=== PATIENT | male | born 1945 | race Caucasian/White ===

== ENCOUNTER 2017-10-08 16:51 | Inpatient (IN) | payer MEDICARE, OTHER ==
[2017-10-08 18:42] LABS: URINE BLOOD (Dip) POC 2+ (NEGATIVE); URINE GLUCOSE (Dip) POC Negative (NEGATIVE); URINE KETONES (Dip) POC Negative (NEGATIVE); URINE LEUKOCYTE EST (Dip) POC Negative (NEGATIVE); URINE NITRITE (Dip) POC Negative (NEGATIVE); URINE TOTAL PROTEIN POC Trace (NEGATIVE)
[2017-10-08 18:54] LABS: ADD MAN DIFF? NO
[2017-10-08] MEDS: SOD CHLORIDE 0.9% 1,000 ML IV (18:55)
[2017-10-08] MEDS: ONDANSETRON 4 MG INJ IV (18:55)
[2017-10-08] MEDS: KETOROLAC 15 MG INJ IV (18:55)
[2017-10-08 18:56] LABS: BASOPHILS % 0.4 % (0.0-2.0); EOSINOPHILS # 0.1 10^3/ul (0.0-0.5); EOSINOPHILS % 1.3 % (0.0-7.0); HEMATOCRIT 38.4 % (42.0-52.0); HEMOGLOBIN 13.3 g/dl (14.0-18.0); LYMPHOCYTES # 0.8 10^3/ul (0.8-2.9); LYMPHOCYTES % 10.2 % (15.0-51.0); MEAN CORPUSCULAR HEMOGLOBIN 32.7 pg (29.0-33.0); MEAN CORPUSCULAR HGB CONC 34.6 g/dl (32.0-37.0); MEAN CORPUSCULAR VOLUME 94.3 fl (82.0-101.0); MEAN PLATELET VOLUME 10.7 fl (7.4-10.4); MONOCYTE # 0.7 10^3/ul (0.3-0.9); NEUTROPHIL # 5.9 10^3/ul (1.6-7.5); NEUTROPHILS % 78.8 % (39.0-77.0); PLATELET COUNT 186 10^3/UL (140-415); RED BLOOD COUNT 4.07 10^6/ul (4.70-6.10); RED CELL DISTRIBUTION WIDTH 12.6 % (11.5-14.5)
[2017-10-08 18:56] LABS: WHITE BLOOD COUNT 7.5 10^3/ul (4.8-10.8)
[2017-10-08 19:00] LABS: INR 1.01; PROTIME 13.4 Sec (11.9-14.9)
[2017-10-08 19:02] LABS: ADD UMIC YES; ALANINE AMINOTRANSFERASE 30 IU/L (13-69); ALBUMIN 4.4 g/dl (3.3-4.9); ALBUMIN/GLOBULIN RATIO 1.51; ALKALINE PHOSPHATASE 95 IU/L (42-121); ANION GAP 20 (8-16); ASPARTATE AMINO TRANSFERASE 20 IU/L (15-46); BILIRUBIN,INDIRECT 0.2 mg/dl (0-1.1); BILIRUBIN,TOTAL 0.2 mg/dl (0.2-1.3); BLOOD UREA NITROGEN 24 mg/dl (7-20); CALCIUM 9.4 mg/dl (8.4-10.2); CARBON DIOXIDE 23 mmol/L (21-31); CHLORIDE 106 mmol/L (97-110); CREATININE 2.06 mg/dl (0.61-1.24); GLUCOSE 117 mg/dl (70-220); LIPASE 70 U/L (23-300); POTASSIUM 4.7 mmol/L (3.5-5.1); SODIUM 144 mmol/L (135-144); TOTAL PROTEIN 7.3 g/dl (6.1-8.1); UR ASCORBIC ACID 20 mg/dL (NEGATIVE); UR BILIRUBIN (Dip) NEGATIVE (NEGATIVE); UR BLOOD (Dip) 1+ mg/dL (NEGATIVE); UR CLARITY CLEAR (CLEAR); UR COLOR YELLOW (YELLOW); UR GLUCOSE (Dip) NEGATIVE (NEGATIVE); UR KETONES (Dip) NEGATIVE (NEGATIVE); UR LEUKOCYTE ESTERASE (Dip) NEGATIVE Leu/ul (NEGATIVE); UR NITRITE (Dip) NEGATIVE (NEGATIVE); UR RBC 9 /HPF (0-5); UR SPECIFIC GRAVITY (Dip) 1.017 (1.003-1.030); UR TOTAL PROTEIN (Dip) NEGATIVE (NEGATIVE); UR UROBILINOGEN (Dip) NEGATIVE (NEGATIVE); UR WBC 1 /HPF (0-5)
[2017-10-08] MEDS: HYDROmorphONE 1 MG/ML SYG IV (19:39)
[2017-10-08] MEDS ORDERED: morphine 10 MG INJ (21:56)
[2017-10-08] MEDS: morphine 10 MG INJ IV (21:57)
[2017-10-08] MEDS ORDERED: ACETAMINOPHEN 325 MG TAB PO (23:30)
[2017-10-08] MEDS ORDERED: NACL 0.9% 3 ML SYG IV (23:30)
[2017-10-08] MEDS ORDERED: MAGNESIUM HYDROXIDE 30ML CUP PO (23:30)
[2017-10-08] MEDS ORDERED: ONDANSETRON 4 MG INJ IV (23:30)
[2017-10-08] MEDS ORDERED: RANITIDINE 150 MG TAB PO (23:30)
[2017-10-09] MEDS ORDERED: SALINE 0.65% 45 ML NAS SPRAY NASAL
[2017-10-09] MEDS ORDERED: VITAMIN A & D 5 GM OINT PACKET TOP (00:31)
[2017-10-09] MEDS: DEXTROSE 5%-0.45% NACL 1,000 ML IV ×2 (00:43→13:18)
[2017-10-09] MEDS: morphine 2 MG INJ IV ×4 (05:05→23:37)
[2017-10-09] MEDS: PANTOPRAZOLE 40 MG INJ IV (05:06)
[2017-10-09] MEDS: TICAGRELOR 90 MG TABLET PO ×3 (09:00→20:38)
[2017-10-09] MEDS: ISOSORBIDE MONONITRATE(SR)30 MG TAB PO ×2 (09:00)
[2017-10-09] MEDS: ASPIRIN (EC) 81 MG TAB PO ×2 (09:00→14:47)
[2017-10-09] MEDS: VALSARTAN 160 MG TAB PO (10:24)
[2017-10-09] MEDS ORDERED: HYDROmorphONE 1 MG/ML SYG IV (13:30)
[2017-10-09] MEDS: CEFTRIAXONE 1 GM/50 ML (PMX) 50 ML IVPB (14:47)
[2017-10-09 16:01] LABS: B-TYPE NATRIURETIC PEPTIDE 2530 PG/ML (0-125)
[2017-10-09 16:08] LABS: CK INDEX 4.5
[2017-10-09 16:11] LABS: CK-MB 2.27 ng/ml (0.0-2.4); CREATINE KINASE 50 IU/L (23-200)
[2017-10-09 16:19] LABS: URIC ACID 7.5 mg/dl (3.1-7.9)
[2017-10-09] MEDS: HYDROmorphONE 1 MG/ML SYG IV (18:27)
[2017-10-09] MEDS: NIACIN (ER) 500 MG TAB PO (20:38)
[2017-10-09] MEDS: METOPROLOL (XL) 50 MG TAB PO (20:39)
[2017-10-09] MEDS: TAMSULOSIN (SR) 0.4 MG CAP PO (21:44)
[2017-10-09] MEDS: ATORVASTATIN 10 MG TAB PO (21:44)
[2017-10-10 01:26] LABS: CREATINE KINASE 59 IU/L (23-200)
[2017-10-10 01:40] LABS: CK INDEX 3.7; TROPONIN-I 0.038 ng/ml (0.00-0.12)
[2017-10-10 01:42] LABS: CK-MB 2.16 ng/ml (0.0-2.4)
[2017-10-10] MEDS: DEXTROSE 5%-0.45% NACL 1,000 ML IV ×3 (01:45→17:19)
[2017-10-10] MEDS: HYDROCODONE/APAP (5/325) TAB PO (02:28)
[2017-10-10] MEDS: morphine 2 MG INJ IV ×5 (04:54→22:30)
[2017-10-10] MEDS: PANTOPRAZOLE 40 MG INJ IV (05:38)
[2017-10-10] MEDS ORDERED: MEPERIDINE 25 MG INJ IV (06:30)
[2017-10-10] MEDS ORDERED: OXYCODONE/ACETAMINOPHEN (5/325) TAB PO ×2 (06:30)
[2017-10-10] MEDS ORDERED: EPHEDrine SULFATE 50 MG/5 ML SYG IV (06:30)
[2017-10-10] MEDS ORDERED: DIPHENHYDRAMINE 50 MG INJ IV (06:30)
[2017-10-10] MEDS ORDERED: MIDAZOLAM 1 MG/ML 2 ML INJ IV (06:30)
[2017-10-10] MEDS ORDERED: hydrALAzine 20 MG INJ IV (06:30)
[2017-10-10] MEDS ORDERED: ONDANSETRON 4 MG INJ IV (06:30)
[2017-10-10] MEDS ORDERED: FENTAnyl 50 MCG/ML VIAL IV ×2 (06:30)
[2017-10-10] MEDS ORDERED: ATROPINE 1 MG/10 ML SYRINGE IV (06:30)
[2017-10-10] MEDS ORDERED: HYDROmorphONE (0.2 MG/ML) 10ML SYG IV ×3 (06:30)
[2017-10-10] MEDS ORDERED: LABETALOL HCL 20MG INJ IV (06:30)
[2017-10-10] MEDS ORDERED: morphine (1 MG/ML) 10ML SYRINGE IV ×3 (06:30)
[2017-10-10] MEDS: TICAGRELOR 90 MG TABLET PO ×2 (09:21→21:18)
[2017-10-10] MEDS: ASPIRIN (EC) 81 MG TAB PO (09:21)
[2017-10-10] MEDS: ISOSORBIDE MONONITRATE(SR)30 MG TAB PO (09:22)
[2017-10-10 10:54] LABS: ADD MAN DIFF? NO
[2017-10-10 11:01] LABS: BASOPHILS % 0.3 % (0.0-2.0); EOSINOPHILS # 0.1 10^3/ul (0.0-0.5); HEMATOCRIT 33.6 % (42.0-52.0); HEMOGLOBIN 11.5 g/dl (14.0-18.0); LYMPHOCYTES # 0.8 10^3/ul (0.8-2.9); LYMPHOCYTES % 10.5 % (15.0-51.0); MEAN CORPUSCULAR HEMOGLOBIN 32.5 pg (29.0-33.0); MEAN CORPUSCULAR HGB CONC 34.2 g/dl (32.0-37.0); MEAN CORPUSCULAR VOLUME 94.9 fl (82.0-101.0); MEAN PLATELET VOLUME 10.7 fl (7.4-10.4); MONOCYTE # 0.7 10^3/ul (0.3-0.9); MONOCYTES % 9.1 % (0.0-11.0); NEUTROPHIL # 5.7 10^3/ul (1.6-7.5); NEUTROPHILS % 78.8 % (39.0-77.0); PLATELET COUNT 159 10^3/UL (140-415); RED BLOOD COUNT 3.54 10^6/ul (4.70-6.10); RED CELL DISTRIBUTION WIDTH 12.6 % (11.5-14.5)
[2017-10-10 11:01] LABS: WHITE BLOOD COUNT 7.3 10^3/ul (4.8-10.8)
[2017-10-10 11:22] LABS: CHOLESTEROL 106 mg/dl (100-200)
[2017-10-10 11:22] LABS: CHOL/HDL RATIO 2.5 RATIO; CREATINE KINASE 62 IU/L (23-200); HDL CHOLESTEROL 41 mg/dl (31-75); LDL CHOLESTEROL,CALCULATED 50 mg/dl; TRIGLYCERIDES 75 mg/dl (0-149)
[2017-10-10 11:23] LABS: PHOSPHORUS 3.5 mg/dl (2.5-4.9)
[2017-10-10 11:23] LABS: MAGNESIUM 1.6 mg/dl (1.7-2.5)
[2017-10-10 11:24] LABS: ANION GAP 16 (8-16); BLOOD UREA NITROGEN 22 mg/dl (7-20); CALCIUM 8.6 mg/dl (8.4-10.2); CARBON DIOXIDE 23 mmol/L (21-31); CHLORIDE 103 mmol/L (97-110); GLUCOSE 118 mg/dl (70-220); SODIUM 137 mmol/L (135-144)
[2017-10-10 11:33] LABS: CK INDEX 3.9; TROPONIN-I 0.029 ng/ml (0.00-0.12)
[2017-10-10] MEDS: CEFTRIAXONE 1 GM/50 ML (PMX) 50 ML IVPB (13:21)
[2017-10-10] MEDS: MAGNESIUM SULFATE 2 GM/50 ML 50 ML IVPB (13:45)
[2017-10-10] MEDS: FUROSEMIDE 40 MG INJ IV (13:46)
[2017-10-10] MEDS: TAMSULOSIN (SR) 0.4 MG CAP PO (14:38)
[2017-10-10] MEDS ORDERED: ZOLPIDEM 5 MG TAB PO (20:00)
[2017-10-10] MEDS: NIACIN (ER) 500 MG TAB PO (21:11)
[2017-10-10] MEDS: ATORVASTATIN 10 MG TAB PO (21:11)
[2017-10-10] MEDS: METOPROLOL (XL) 50 MG TAB PO (21:12)
[2017-10-11] MEDS: morphine 2 MG INJ IV ×2 (05:14→21:49)
[2017-10-11] MEDS: PANTOPRAZOLE 40 MG INJ IV (05:17)
[2017-10-11] MEDS: ASPIRIN (EC) 81 MG TAB PO (09:19)
[2017-10-11] MEDS: TICAGRELOR 90 MG TABLET PO ×2 (09:19→21:07)
[2017-10-11] MEDS: ISOSORBIDE MONONITRATE(SR)30 MG TAB PO (09:20)
[2017-10-11] MEDS: FUROSEMIDE 40 MG INJ IV (09:21)
[2017-10-11] MEDS: TAMSULOSIN (SR) 0.4 MG CAP PO (11:13)
[2017-10-11] MEDS: DEXTROSE 5%-0.45% NACL 1,000 ML IV (11:13)
[2017-10-11 11:51] LABS: ADD MAN DIFF? NO
[2017-10-11 12:02] LABS: BASOPHILS % 0.3 % (0.0-2.0); EOSINOPHILS # 0.1 10^3/ul (0.0-0.5); EOSINOPHILS % 2.1 % (0.0-7.0); HEMATOCRIT 33.5 % (42.0-52.0); HEMOGLOBIN 11.5 g/dl (14.0-18.0); LYMPHOCYTES # 0.7 10^3/ul (0.8-2.9); LYMPHOCYTES % 11.4 % (15.0-51.0); MEAN CORPUSCULAR HEMOGLOBIN 32.5 pg (29.0-33.0); MEAN CORPUSCULAR HGB CONC 34.3 g/dl (32.0-37.0); MEAN CORPUSCULAR VOLUME 94.6 fl (82.0-101.0); MEAN PLATELET VOLUME 10.9 fl (7.4-10.4); MONOCYTE # 0.8 10^3/ul (0.3-0.9); NEUTROPHIL # 4.2 10^3/ul (1.6-7.5); PLATELET COUNT 171 10^3/UL (140-415); RED BLOOD COUNT 3.54 10^6/ul (4.70-6.10); RED CELL DISTRIBUTION WIDTH 12.9 % (11.5-14.5)
[2017-10-11 12:02] LABS: WHITE BLOOD COUNT 5.8 10^3/ul (4.8-10.8)
[2017-10-11 12:13] LABS: PHOSPHORUS 3.8 mg/dl (2.5-4.9)
[2017-10-11 12:13] LABS: ANION GAP 16 (8-16); BLOOD UREA NITROGEN 30 mg/dl (7-20); CALCIUM 8.8 mg/dl (8.4-10.2); CARBON DIOXIDE 24 mmol/L (21-31); CHLORIDE 102 mmol/L (97-110); CREATININE 2.62 mg/dl (0.61-1.24); GLUCOSE 115 mg/dl (70-220); MAGNESIUM 2.2 mg/dl (1.7-2.5); POTASSIUM 5.4 mmol/L (3.5-5.1); SODIUM 137 mmol/L (135-144)
[2017-10-11] MEDS: BISACODYL (EC) 5 MG TAB PO (13:39)
[2017-10-11] MEDS: CEFTRIAXONE 1 GM/50 ML (PMX) 50 ML IVPB (13:39)
[2017-10-11] MEDS: NA POLYST SULFON 15 GM/60 ML BTL PO (16:38)
[2017-10-11] MEDS: OXYCODONE/ACETAMINOPHEN (10/325) TAB PO ×2 (16:46→20:59)
[2017-10-11] MEDS: METOPROLOL (XL) 50 MG TAB PO (20:58)
[2017-10-11] MEDS: NIACIN (ER) 500 MG TAB PO (20:58)
[2017-10-11] MEDS: ATORVASTATIN 10 MG TAB PO (20:59)
[2017-10-12] MEDS: PANTOPRAZOLE 40 MG INJ IV (06:17)
[2017-10-12] MEDS ORDERED: LIDOCAINE 2% (SDV) 5 ML INJ (07:00)
[2017-10-12] MEDS ORDERED: EPHEDrine SULFATE 50 MG/5 ML SYG (07:00)
[2017-10-12] MEDS ORDERED: CEFAZOLIN 1 GM INJ (07:00)
[2017-10-12] MEDS: morphine 2 MG INJ IV (08:01)
[2017-10-12 08:45] LABS: ADD MAN DIFF? NO
[2017-10-12 08:55] LABS: BASOPHILS % 0.5 % (0.0-2.0); EOSINOPHILS # 0.2 10^3/ul (0.0-0.5); EOSINOPHILS % 3.1 % (0.0-7.0); HEMATOCRIT 35.8 % (42.0-52.0); HEMOGLOBIN 12.3 g/dl (14.0-18.0); LYMPHOCYTES # 0.9 10^3/ul (0.8-2.9); LYMPHOCYTES % 16.4 % (15.0-51.0); MEAN CORPUSCULAR HEMOGLOBIN 32.8 pg (29.0-33.0); MEAN CORPUSCULAR HGB CONC 34.4 g/dl (32.0-37.0); MEAN CORPUSCULAR VOLUME 95.5 fl (82.0-101.0); MEAN PLATELET VOLUME 10.4 fl (7.4-10.4); MONOCYTE # 0.7 10^3/ul (0.3-0.9); MONOCYTES % 11.9 % (0.0-11.0); NEUTROPHIL # 3.9 10^3/ul (1.6-7.5); NEUTROPHILS % 67.8 % (39.0-77.0); PLATELET COUNT 182 10^3/UL (140-415); RED BLOOD COUNT 3.75 10^6/ul (4.70-6.10); RED CELL DISTRIBUTION WIDTH 12.7 % (11.5-14.5)
[2017-10-12 08:55] LABS: WHITE BLOOD COUNT 5.7 10^3/ul (4.8-10.8)
[2017-10-12] MEDS: FUROSEMIDE 40 MG INJ IV (09:00)
[2017-10-12] MEDS: ISOSORBIDE MONONITRATE(SR)30 MG TAB PO ×2 (09:00→10:41)
[2017-10-12 09:07] LABS: MAGNESIUM 2.1 mg/dl (1.7-2.5)
[2017-10-12 09:11] LABS: ANION GAP 18 (8-16); BLOOD UREA NITROGEN 34 mg/dl (7-20); CALCIUM 8.9 mg/dl (8.4-10.2); CARBON DIOXIDE 26 mmol/L (21-31); CHLORIDE 101 mmol/L (97-110); CREATININE 2.42 mg/dl (0.61-1.24); GLUCOSE 113 mg/dl (70-220); POTASSIUM 4.1 mmol/L (3.5-5.1); SODIUM 141 mmol/L (135-144)
[2017-10-12] MEDS: HYDROmorphONE 1 MG/ML SYG IV (10:41)
[2017-10-12] MEDS: ASPIRIN (EC) 81 MG TAB PO (10:42)
[2017-10-12] MEDS: TICAGRELOR 90 MG TABLET PO ×2 (10:46→21:00)
[2017-10-12] MEDS: TAMSULOSIN (SR) 0.4 MG CAP PO (11:30)
[2017-10-12] MEDS: CEFTRIAXONE 1 GM/50 ML (PMX) 50 ML IVPB (13:30)
[2017-10-12] MEDS ORDERED: HYDROmorphONE 2 MG TAB PO (15:00)
[2017-10-12] MEDS: ALPRAZOLAM 0.5 MG TAB PO ×2 (15:00→22:10)
[2017-10-12] MEDS: LORAZEPAM 2 MG INJ IV (15:30)
[2017-10-12] MEDS: DEXTROSE 5%-0.45% NACL 1,000 ML IV (17:34)
[2017-10-12] MEDS: HYDROmorphONE 2 MG/ML SYG IV ×2 (17:38→22:10)
[2017-10-12] MEDS ORDERED: ETOMIDATE 20 MG INJ (18:54)
[2017-10-12] MEDS ORDERED: METOCLOPRAMIDE 10 MG INJ (18:56)
[2017-10-12] MEDS ORDERED: ONDANSETRON 4 MG INJ (18:56)
[2017-10-12] MEDS ORDERED: MIDAZOLAM 1 MG/ML 2 ML INJ (18:56)
[2017-10-12] MEDS ORDERED: FENTAnyl 50 MCG/ML VIAL ×3 (18:56→20:08)
[2017-10-12] MEDS ORDERED: FUROSEMIDE 20 MG INJ (19:27)
[2017-10-12] MEDS ORDERED: PROPOFOL 20 ML (19:40)
[2017-10-12] MEDS ORDERED: METOPROLOL 5 MG INJ (19:40)
[2017-10-12] MEDS ORDERED: LABETALOL HCL 20MG INJ (20:12)
[2017-10-12] MEDS: LABETALOL HCL 20MG INJ IV ×3 (20:22→20:53)
[2017-10-12] MEDS: FENTAnyl 50 MCG/ML VIAL IV ×2 (20:26→20:46)
[2017-10-12] MEDS ORDERED: HYDROmorphONE (0.2 MG/ML) 10ML SYG IV ×3 (20:30)
[2017-10-12] MEDS ORDERED: ONDANSETRON 4 MG INJ IV (20:30)
[2017-10-12] MEDS ORDERED: ALBUTEROL 0.083% (NEB) 2.5 MG/3 ML AMP HHN (20:30)
[2017-10-12] MEDS ORDERED: DIPHENHYDRAMINE 50 MG INJ IV (20:30)
[2017-10-12] MEDS: hydrALAzine 20 MG INJ IV ×2 (20:42→21:01)
[2017-10-12] MEDS: ATORVASTATIN 10 MG TAB PO (21:00)
[2017-10-12] MEDS: NIACIN (ER) 500 MG TAB PO (21:00)
[2017-10-12] MEDS: METOPROLOL (XL) 50 MG TAB PO (22:09)
[2017-10-13 05:23] LABS: ADD MAN DIFF? NO
[2017-10-13 05:30] LABS: WHITE BLOOD COUNT 6.6 10^3/ul (4.8-10.8)
[2017-10-13 05:30] LABS: BASOPHILS % 0.3 % (0.0-2.0); EOSINOPHILS # 0.1 10^3/ul (0.0-0.5); EOSINOPHILS % 1.5 % (0.0-7.0); HEMATOCRIT 36.7 % (42.0-52.0); HEMOGLOBIN 12.3 g/dl (14.0-18.0); LYMPHOCYTES # 0.8 10^3/ul (0.8-2.9); LYMPHOCYTES % 12.4 % (15.0-51.0); MEAN CORPUSCULAR HEMOGLOBIN 32.4 pg (29.0-33.0); MEAN CORPUSCULAR HGB CONC 33.5 g/dl (32.0-37.0); MEAN CORPUSCULAR VOLUME 96.6 fl (82.0-101.0); MEAN PLATELET VOLUME 10.4 fl (7.4-10.4); MONOCYTE # 0.7 10^3/ul (0.3-0.9); MONOCYTES % 10.6 % (0.0-11.0); PLATELET COUNT 224 10^3/UL (140-415); RED CELL DISTRIBUTION WIDTH 12.9 % (11.5-14.5)
[2017-10-13] MEDS: PANTOPRAZOLE 40 MG INJ IV (06:05)
[2017-10-13 06:19] LABS: ANION GAP 19 (8-16); BLOOD UREA NITROGEN 29 mg/dl (7-20); CALCIUM 9.4 mg/dl (8.4-10.2); CARBON DIOXIDE 28 mmol/L (21-31); CHLORIDE 102 mmol/L (97-110); CREATININE 1.89 mg/dl (0.61-1.24); GLUCOSE 108 mg/dl (70-220); POTASSIUM 4.4 mmol/L (3.5-5.1); SODIUM 145 mmol/L (135-144)
[2017-10-13] MEDS: ASPIRIN (EC) 81 MG TAB PO (08:56)
[2017-10-13] MEDS: ALPRAZOLAM 0.5 MG TAB PO ×2 (08:57→21:31)
[2017-10-13] MEDS: FUROSEMIDE 40 MG INJ IV (08:58)
[2017-10-13] MEDS: TICAGRELOR 90 MG TABLET PO ×2 (08:59→21:32)
[2017-10-13] MEDS: TAMSULOSIN (SR) 0.4 MG CAP PO (13:15)
[2017-10-13] MEDS: CEFTRIAXONE 1 GM/50 ML (PMX) 50 ML IVPB (13:16)
[2017-10-13] MEDS ORDERED: HYDROmorphONE 1 MG/ML SYG IV (16:00)
[2017-10-13] MEDS: DEXTROSE 5%-0.45% NACL 1,000 ML IV (18:10)
[2017-10-13] MEDS ORDERED: HYDROmorphONE 2 MG/ML SYG IV (18:30)
[2017-10-13] MEDS: BISACODYL (EC) 5 MG TAB PO (19:03)
[2017-10-13] MEDS: ATORVASTATIN 10 MG TAB PO (21:31)
[2017-10-13] MEDS: NIACIN (ER) 500 MG TAB PO (21:31)
[2017-10-13] MEDS: METOPROLOL (XL) 50 MG TAB PO (21:33)
[2017-10-14] MEDS: PANTOPRAZOLE 40 MG INJ IV (06:13)
[2017-10-14] MEDS: FUROSEMIDE 40 MG INJ IV (08:57)
[2017-10-14] MEDS: ALPRAZOLAM 0.5 MG TAB PO ×2 (08:58→22:00)
[2017-10-14] MEDS: ASPIRIN (EC) 81 MG TAB PO (08:58)
[2017-10-14] MEDS: ISOSORBIDE MONONITRATE(SR)30 MG TAB PO (08:58)
[2017-10-14] MEDS: TICAGRELOR 90 MG TABLET PO ×2 (09:17→22:04)
[2017-10-14] MEDS: TAMSULOSIN (SR) 0.4 MG CAP PO (11:45)
[2017-10-14] MEDS: CEFTRIAXONE 1 GM/50 ML (PMX) 50 ML IVPB (13:47)
[2017-10-14 16:35] LABS: ANION GAP 17 (8-16); BLOOD UREA NITROGEN 30 mg/dl (7-20); CALCIUM 8.6 mg/dl (8.4-10.2); CARBON DIOXIDE 26 mmol/L (21-31); CHLORIDE 101 mmol/L (97-110); CREATININE 1.63 mg/dl (0.61-1.24); GLUCOSE 160 mg/dl (70-220); POTASSIUM 3.9 mmol/L (3.5-5.1); SODIUM 140 mmol/L (135-144)
[2017-10-14] MEDS: DEXTROSE 5%-0.45% NACL 1,000 ML IV (17:19)
[2017-10-14] MEDS: ACETAMINOPHEN 500 MG TAB PO (21:10)
[2017-10-14] MEDS: ATORVASTATIN 10 MG TAB PO (21:10)
[2017-10-14] MEDS: NIACIN (ER) 500 MG TAB PO (21:11)
[2017-10-14] MEDS: METOPROLOL (XL) 50 MG TAB PO (21:12)
[2017-10-15] MEDS: PANTOPRAZOLE 40 MG INJ IV (06:00)
[2017-10-15] MEDS: FUROSEMIDE 40 MG INJ IV (08:49)
[2017-10-15] MEDS: OXYCODONE/ACETAMINOPHEN (10/325) TAB PO (08:49)
[2017-10-15] MEDS: ASPIRIN (EC) 81 MG TAB PO (08:50)
[2017-10-15] MEDS: ISOSORBIDE MONONITRATE(SR)30 MG TAB PO (08:50)
[2017-10-15] MEDS: ALPRAZOLAM 0.5 MG TAB PO ×2 (08:50→20:08)
[2017-10-15] MEDS: TICAGRELOR 90 MG TABLET PO ×2 (09:06→20:10)
[2017-10-15 11:45] LABS: ADD MAN DIFF? NO
[2017-10-15] MEDS: TAMSULOSIN (SR) 0.4 MG CAP PO (11:50)
[2017-10-15 12:11] LABS: ANION GAP 19 (8-16); BASOPHILS % 0.4 % (0.0-2.0); BLOOD UREA NITROGEN 28 mg/dl (7-20); CALCIUM 9.1 mg/dl (8.4-10.2); CARBON DIOXIDE 27 mmol/L (21-31); CHLORIDE 99 mmol/L (97-110); CREATININE 1.49 mg/dl (0.61-1.24); EOSINOPHILS # 0.1 10^3/ul (0.0-0.5); EOSINOPHILS % 1.2 % (0.0-7.0); GLUCOSE 159 mg/dl (70-220); HEMATOCRIT 34.6 % (42.0-52.0); HEMOGLOBIN 11.8 g/dl (14.0-18.0); LYMPHOCYTES # 0.7 10^3/ul (0.8-2.9); LYMPHOCYTES % 9.4 % (15.0-51.0); MEAN CORPUSCULAR HEMOGLOBIN 32.6 pg (29.0-33.0); MEAN CORPUSCULAR HGB CONC 34.1 g/dl (32.0-37.0); MEAN CORPUSCULAR VOLUME 95.6 fl (82.0-101.0); MEAN PLATELET VOLUME 10.3 fl (7.4-10.4); MONOCYTE # 0.7 10^3/ul (0.3-0.9); MONOCYTES % 8.6 % (0.0-11.0); NEUTROPHIL # 6.3 10^3/ul (1.6-7.5); NEUTROPHILS % 80.1 % (39.0-77.0); PLATELET COUNT 250 10^3/UL (140-415); POTASSIUM 3.5 mmol/L (3.5-5.1); RED BLOOD COUNT 3.62 10^6/ul (4.70-6.10); RED CELL DISTRIBUTION WIDTH 12.9 % (11.5-14.5); SODIUM 141 mmol/L (135-144)
[2017-10-15 12:11] LABS: WHITE BLOOD COUNT 7.8 10^3/ul (4.8-10.8)
[2017-10-15] MEDS: CEFTRIAXONE 1 GM/50 ML (PMX) 50 ML IVPB (12:52)
[2017-10-15] MEDS: CYCLOBENZAPRINE 10 MG TAB PO ×2 (14:02→20:12)
[2017-10-15 14:27] LABS: URIC ACID 9.6 mg/dl (3.1-7.9)
[2017-10-15 14:36] LABS: CK-MB 1.56 ng/ml (0.0-2.4)
[2017-10-15] MEDS: HYDROmorphONE 1 MG/ML SYG IV (14:43)
[2017-10-15] MEDS: DEXTROSE 5%-0.45% NACL 1,000 ML IV ×2 (15:05→20:14)
[2017-10-15] MEDS: NIACIN (ER) 500 MG TAB PO (20:08)
[2017-10-15] MEDS: HYDROCODONE/APAP (5/325) TAB PO (20:09)
[2017-10-15] MEDS: METOPROLOL (XL) 50 MG TAB PO (20:11)
[2017-10-15] MEDS: ATORVASTATIN 10 MG TAB PO (20:12)
[2017-10-16] MEDS: PANTOPRAZOLE (EC) 40 MG TAB PO (05:40)
[2017-10-16] MEDS: OXYCODONE/ACETAMINOPHEN (10/325) TAB PO (07:39)
[2017-10-16] MEDS: ALPRAZOLAM 0.5 MG TAB PO ×2 (07:40→20:49)
[2017-10-16] MEDS: CYCLOBENZAPRINE 10 MG TAB PO ×3 (09:22→20:49)
[2017-10-16] MEDS: FUROSEMIDE 40 MG INJ IV (09:22)
[2017-10-16] MEDS: ASPIRIN (EC) 81 MG TAB PO (09:23)
[2017-10-16] MEDS: ISOSORBIDE MONONITRATE(SR)30 MG TAB PO (09:23)
[2017-10-16] MEDS: TICAGRELOR 90 MG TABLET PO ×2 (09:47→20:52)
[2017-10-16] MEDS: TAMSULOSIN (SR) 0.4 MG CAP PO (12:00)
[2017-10-16] MEDS: HYDROmorphONE 2 MG TAB PO ×2 (12:02→18:25)
[2017-10-16] MEDS: CEFTRIAXONE 1 GM/50 ML (PMX) 50 ML IVPB (12:56)
[2017-10-16] MEDS: DEXTROSE 5%-0.45% NACL 1,000 ML IV ×2 (15:05→23:25)
[2017-10-16] MEDS: ATORVASTATIN 10 MG TAB PO (20:49)
[2017-10-16] MEDS: NIACIN (ER) 500 MG TAB PO (20:49)
[2017-10-16] MEDS: METOPROLOL (XL) 50 MG TAB PO (20:50)
[2017-10-17] MEDS: HYDROmorphONE 2 MG TAB PO (05:38)
[2017-10-17] MEDS: PANTOPRAZOLE (EC) 40 MG TAB PO (05:38)
[2017-10-17] MEDS: TICAGRELOR 90 MG TABLET PO ×2 (09:03→20:55)
[2017-10-17] MEDS: ISOSORBIDE MONONITRATE(SR)30 MG TAB PO (09:03)
[2017-10-17] MEDS: CYCLOBENZAPRINE 10 MG TAB PO ×2 (09:03→12:13)
[2017-10-17] MEDS: ASPIRIN (EC) 81 MG TAB PO (09:03)
[2017-10-17] MEDS: FUROSEMIDE 40 MG INJ IV (09:04)
[2017-10-17] MEDS: ALPRAZOLAM 0.5 MG TAB PO (09:06)
[2017-10-17 10:51] LABS: ADD MAN DIFF? NO
[2017-10-17 10:53] LABS: WHITE BLOOD COUNT 7.8 10^3/ul (4.8-10.8)
[2017-10-17 10:53] LABS: BASOPHILS % 0.4 % (0.0-2.0); EOSINOPHILS # 0.1 10^3/ul (0.0-0.5); EOSINOPHILS % 1.5 % (0.0-7.0); HEMATOCRIT 32.3 % (42.0-52.0); HEMOGLOBIN 11.3 g/dl (14.0-18.0); LYMPHOCYTES # 0.8 10^3/ul (0.8-2.9); LYMPHOCYTES % 9.7 % (15.0-51.0); MEAN CORPUSCULAR HEMOGLOBIN 32.8 pg (29.0-33.0); MEAN CORPUSCULAR VOLUME 93.6 fl (82.0-101.0); MEAN PLATELET VOLUME 10.1 fl (7.4-10.4); NEUTROPHIL # 5.8 10^3/ul (1.6-7.5); NEUTROPHILS % 74.9 % (39.0-77.0); PLATELET COUNT 271 10^3/UL (140-415); RED BLOOD COUNT 3.45 10^6/ul (4.70-6.10); RED CELL DISTRIBUTION WIDTH 12.4 % (11.5-14.5)
[2017-10-17 11:20] LABS: ALANINE AMINOTRANSFERASE 32 IU/L (13-69); ALBUMIN 3.9 g/dl (3.3-4.9); ALBUMIN/GLOBULIN RATIO 1.21; ALKALINE PHOSPHATASE 80 IU/L (42-121); ANION GAP 19 (8-16); ASPARTATE AMINO TRANSFERASE 22 IU/L (15-46); BILIRUBIN,INDIRECT 0.4 mg/dl (0-1.1); BILIRUBIN,TOTAL 0.4 mg/dl (0.2-1.3); BLOOD UREA NITROGEN 32 mg/dl (7-20); CALCIUM 8.9 mg/dl (8.4-10.2); CARBON DIOXIDE 25 mmol/L (21-31); CHLORIDE 94 mmol/L (97-110); GLUCOSE 112 mg/dl (70-220); POTASSIUM 3.8 mmol/L (3.5-5.1); SODIUM 134 mmol/L (135-144); TOTAL PROTEIN 7.1 g/dl (6.1-8.1)
[2017-10-17] MEDS: TAMSULOSIN (SR) 0.4 MG CAP PO (12:13)
[2017-10-17] MEDS: CEFTRIAXONE 1 GM/50 ML (PMX) 50 ML IVPB (13:16)
[2017-10-17] MEDS: ALLOPURINOL 100 MG TAB PO (17:11)
[2017-10-17 17:15] LABS: CREATINE KINASE 43 IU/L (23-200)
[2017-10-17 17:15] LABS: URIC ACID 10.5 mg/dl (3.1-7.9)
[2017-10-17] MEDS: METOPROLOL (XL) 50 MG TAB PO (20:53)
[2017-10-17] MEDS: OXYCODONE/ACETAMINOPHEN (10/325) TAB PO (22:06)
[2017-10-18] MEDS: PANTOPRAZOLE (EC) 40 MG TAB PO (06:03)
[2017-10-18] MEDS: DEXTROSE 5%-0.45% NACL 1,000 ML IV (07:42)
[2017-10-18] MEDS: ALLOPURINOL 100 MG TAB PO (08:30)
[2017-10-18] MEDS: ASPIRIN (EC) 81 MG TAB PO (08:30)
[2017-10-18] MEDS: FUROSEMIDE 40 MG INJ IV (08:31)
[2017-10-18] MEDS: ISOSORBIDE MONONITRATE(SR)30 MG TAB PO (08:31)
[2017-10-18] MEDS: TICAGRELOR 90 MG TABLET PO ×2 (08:38→20:55)
[2017-10-18] MEDS: OXYCODONE/ACETAMINOPHEN (10/325) TAB PO (09:57)
[2017-10-18 10:06] LABS: ADD MAN DIFF? NO
[2017-10-18 10:10] LABS: WHITE BLOOD COUNT 7.7 10^3/ul (4.8-10.8)
[2017-10-18 10:10] LABS: ABNORMAL IP MESSAGE 1; BASOPHILS % 0.5 % (0.0-2.0); EOSINOPHILS # 0.1 10^3/ul (0.0-0.5); EOSINOPHILS % 1.7 % (0.0-7.0); HEMATOCRIT 31.5 % (42.0-52.0); HEMOGLOBIN 11.2 g/dl (14.0-18.0); LYMPHOCYTES # 0.6 10^3/ul (0.8-2.9); LYMPHOCYTES % 7.1 % (15.0-51.0); MEAN CORPUSCULAR HGB CONC 35.6 g/dl (32.0-37.0); MEAN CORPUSCULAR VOLUME 92.9 fl (82.0-101.0); MEAN PLATELET VOLUME 9.9 fl (7.4-10.4); MONOCYTE # 0.8 10^3/ul (0.3-0.9); NEUTROPHIL # 6.2 10^3/ul (1.6-7.5); NEUTROPHILS % 80.3 % (39.0-77.0); NUCLEATED RED BLOOD CELLS # 0.1 10^3/ul (0.0-0.0); NUCLEATED RED BLOOD CELLS% 0.9 /100WBC (0.0-0.0); PLATELET COUNT 264 10^3/UL (140-415); POSITIVE DIFF @See below; RED BLOOD COUNT 3.39 10^6/ul (4.70-6.10); RED CELL DISTRIBUTION WIDTH 12.4 % (11.5-14.5)
[2017-10-18 10:26] LABS: ANION GAP 17 (8-16); BLOOD UREA NITROGEN 37 mg/dl (7-20); CALCIUM 9.1 mg/dl (8.4-10.2); CARBON DIOXIDE 27 mmol/L (21-31); CHLORIDE 92 mmol/L (97-110); CREATININE 1.49 mg/dl (0.61-1.24); GLUCOSE 157 mg/dl (70-220); POTASSIUM 4.1 mmol/L (3.5-5.1); SODIUM 132 mmol/L (135-144)
[2017-10-18 10:27] LABS: PHOSPHORUS 4.6 mg/dl (2.5-4.9)
[2017-10-18 10:27] LABS: MAGNESIUM 1.9 mg/dl (1.7-2.5)
[2017-10-18] MEDS: TAMSULOSIN (SR) 0.4 MG CAP PO (11:50)
[2017-10-18] MEDS: DOCUSATE SODIUM 100 MG CAP PO (18:44)
[2017-10-18] MEDS: METOPROLOL (XL) 50 MG TAB PO (20:52)
[2017-10-18] MEDS: HYDROmorphONE 1 MG/ML SYG IV (22:00)
[2017-10-19] MEDS: HYDROmorphONE 1 MG/ML SYG IV (04:36)
[2017-10-19] MEDS: PANTOPRAZOLE (EC) 40 MG TAB PO (05:58)
[2017-10-19] MEDS: ASPIRIN (EC) 81 MG TAB PO (08:48)
[2017-10-19] MEDS: ALLOPURINOL 300 MG TAB PO (08:49)
[2017-10-19] MEDS: ISOSORBIDE MONONITRATE(SR)30 MG TAB PO (08:49)
[2017-10-19] MEDS: FUROSEMIDE 40 MG INJ IV (08:49)
[2017-10-19] MEDS: TICAGRELOR 90 MG TABLET PO (08:54)
[2017-10-19] MEDS ORDERED: HYDROmorphONE 2 MG TAB PO (11:30)
[2017-10-19] MEDS: TAMSULOSIN (SR) 0.4 MG CAP PO (12:21)
== END 2017-10-19 15:14 | DRG 668 ==
LOC: MS1 22:57 → E/R 16:51 → MS1 22:56
PROC: 0TC78ZZ Extirpation of Matter from Left Ureter, Via Natural or Artificial Opening Endoscopic (ICD-10-PCS; principal; 2017-10-12 18:58)
DX: N13.2 Hydronephrosis with renal and ureteral calculous obstruction (principal); I50.23 Acute on chronic systolic (congestive) heart failure; N17.9 Acute kidney failure, unspecified; I42.9 Cardiomyopathy, unspecified; N39.0 Urinary tract infection, site not specified; E66.01 Morbid (severe) obesity due to excess calories; E87.5 Hyperkalemia; I13.0 Hypertensive heart and chronic kidney disease with heart failure and stage 1 through stage 4 chronic kidney disease, or unspecified chronic kidney disease; Z68.39 Body mass index [BMI] 39.0-39.9, adult; B96.1 Klebsiella pneumoniae [K. pneumoniae] as the cause of diseases classified elsewhere; E66.9 Obesity, unspecified; N40.0 Benign prostatic hyperplasia without lower urinary tract symptoms; I25.10 Atherosclerotic heart disease of native coronary artery without angina pectoris; Z95.1 Presence of aortocoronary bypass graft; E78.5 Hyperlipidemia, unspecified; I25.2 Old myocardial infarction; Z86.73 Personal history of transient ischemic attack (TIA), and cerebral infarction without residual deficits; Z87.442 Personal history of urinary calculi; Z95.5 Presence of coronary angioplasty implant and graft; Z79.02 Long term (current) use of antithrombotics/antiplatelets; E78.00 Pure hypercholesterolemia, unspecified; K21.9 Gastro-esophageal reflux disease without esophagitis; N18.9 Chronic kidney disease, unspecified; F41.9 Anxiety disorder, unspecified; M25.579 Pain in unspecified ankle and joints of unspecified foot; M54.9 Dorsalgia, unspecified; M54.2 Cervicalgia
CPT/HCPCS: 36415; 70450; 71045; 72125; 74018; 74176; 74430; 80048; 80053; 80061; 81001; 81003; 82550; 82553; 83690; 83735; 83880; 84100; 84484; 84560; 85025; 85610; 87086; 88300; 93005; 93306; 93970; 96374; 96375; 97110; 97162; 97530; 99285-25; J1940

== ENCOUNTER 2017-11-07 09:29 | Emergency (ER) | payer SELFPAY, MEDICARE, OTHER | END 2017-11-07 16:00 | disposition left against medical advice (07) | LOC: E/R 16:00 | DX: Z53.21 Procedure and treatment not carried out due to patient leaving prior to being seen by health care provider (principal) ==

== ENCOUNTER 2018-01-17 15:15 | Inpatient (IN) | payer MEDICARE, OTHER, BC ==
[2018-01-17] MEDS ORDERED: DILTIAZEM-D5W 125MG/125ML DRIP 125 ML IV (15:46)
[2018-01-17 15:51] LABS: ADD MAN DIFF? NO
[2018-01-17 15:55] LABS: BASOPHILS % 0.4 % (0.0-2.0); EOSINOPHILS # 0.1 10^3/ul (0.0-0.5); EOSINOPHILS % 1.6 % (0.0-7.0); HEMATOCRIT 36.9 % (42.0-52.0); HEMOGLOBIN 12.4 g/dl (14.0-18.0); LYMPHOCYTES % 17.7 % (15.0-51.0); MEAN CORPUSCULAR HGB CONC 33.6 g/dl (32.0-37.0); MEAN CORPUSCULAR VOLUME 95.1 fl (82.0-101.0); MEAN PLATELET VOLUME 10.5 fl (7.4-10.4); MONOCYTE # 0.3 10^3/ul (0.3-0.9); MONOCYTES % 5.8 % (0.0-11.0); NEUTROPHIL # 4.1 10^3/ul (1.6-7.5); NEUTROPHILS % 74.1 % (39.0-77.0); PLATELET COUNT 154 10^3/UL (140-415); RED BLOOD COUNT 3.88 10^6/ul (4.70-6.10); RED CELL DISTRIBUTION WIDTH 13.4 % (11.5-14.5)
[2018-01-17 15:55] LABS: WHITE BLOOD COUNT 5.5 10^3/ul (4.8-10.8)
[2018-01-17 16:10] LABS: ALANINE AMINOTRANSFERASE 23 IU/L (13-69); ALBUMIN 4.1 g/dl (3.3-4.9); ALBUMIN/GLOBULIN RATIO 1.28; ALKALINE PHOSPHATASE 96 IU/L (42-121); ANION GAP 17 (8-16); ASPARTATE AMINO TRANSFERASE 14 IU/L (15-46); BILIRUBIN,INDIRECT 0.1 mg/dl (0-1.1); BILIRUBIN,TOTAL 0.1 mg/dl (0.2-1.3); BLOOD UREA NITROGEN 20 mg/dl (7-20); CALCIUM 9.7 mg/dl (8.4-10.2); CARBON DIOXIDE 21 mmol/L (21-31); CHLORIDE 111 mmol/L (97-110); CREATINE KINASE 37 IU/L (23-200); GLUCOSE 102 mg/dl (70-220); POTASSIUM 3.9 mmol/L (3.5-5.1); SODIUM 145 mmol/L (135-144); TOTAL PROTEIN 7.3 g/dl (6.1-8.1)
[2018-01-17 16:18] LABS: INR 1.05; PROTIME 13.8 Sec (11.9-14.9); PT RATIO 1.1
[2018-01-17 16:23] LABS: B-TYPE NATRIURETIC PEPTIDE 1640 PG/ML (0-125); CK INDEX 2.5; CK-MB 0.94 ng/ml (0.0-2.4); TROPONIN-I 0.014 ng/ml (0.00-0.12)
[2018-01-17] MEDS: DILTIAZEM 25 MG INJ IV (16:29)
[2018-01-17] MEDS: DILTIAZEM-D5W 125MG/125ML DRIP 125 ML IV (16:30)
[2018-01-17] MEDS: ALBUTEROL 0.083% (NEB) 2.5 MG/3 ML AMP NEB (16:34)
[2018-01-17] MEDS: IPRATROPIUM (NEB) 0.5 MG/2.5 ML AMP NEB (16:34)
[2018-01-17] MEDS ORDERED: NACL 0.9% 3 ML SYG IV (19:00)
[2018-01-17] MEDS ORDERED: ONDANSETRON 4 MG INJ IV (20:00)
[2018-01-17] MEDS ORDERED: ACETAMINOPHEN 325 MG TAB PO (20:00)
[2018-01-17 22:18] LABS: CREATINE KINASE 35 IU/L (23-200)
[2018-01-17 22:30] LABS: CK INDEX 3.8; TROPONIN-I 0.052 ng/ml (0.00-0.12)
[2018-01-17 22:31] LABS: CK-MB 1.33 ng/ml (0.0-2.4)
[2018-01-17] MEDS ORDERED: RANITIDINE 150 MG TAB PO (23:00)
[2018-01-18 01:27] LABS: CREATINE KINASE 39 IU/L (23-200)
[2018-01-18 01:38] LABS: CK INDEX 4.2; TROPONIN-I 0.071 ng/ml (0.00-0.12)
[2018-01-18 01:44] LABS: CK-MB 1.62 ng/ml (0.0-2.4)
[2018-01-18] MEDS: PANTOPRAZOLE (EC) 40 MG TAB PO (05:53)
[2018-01-18] MEDS: ASPIRIN (EC) 81 MG TAB PO (08:55)
[2018-01-18] MEDS: METOPROLOL (XL) 50 MG TAB PO ×4 (08:55→21:21)
[2018-01-18] MEDS: ISOSORBIDE MONONITRATE(SR)30 MG TAB PO (08:55)
[2018-01-18] MEDS: ENOXAPARIN 100 MG/ML SYG SC (08:56)
[2018-01-18] MEDS: VALSARTAN 160 MG TAB PO (08:56)
[2018-01-18] MEDS: NIACIN 500 MG TAB PO (09:00)
[2018-01-18 09:16] LABS: CHOLESTEROL 105 mg/dl (100-200)
[2018-01-18 09:16] LABS: CHOL/HDL RATIO 2.3 RATIO; HDL CHOLESTEROL 44 mg/dl (31-75); LDL CHOLESTEROL,CALCULATED 42 mg/dl; TRIGLYCERIDES 96 mg/dl (0-149)
[2018-01-18 09:31] LABS: FREE THYROXINE INDEX (Calc) 3.03 ug/ml (0.65-3.89); T3 UPTAKE 40.4 % (23.5-40.5); T4 (THYROXINE) 7.5 ug/dl (5.5-11.0)
[2018-01-18] MEDS: TICAGRELOR 90 MG TABLET PO ×2 (10:49→21:23)
[2018-01-18] MEDS: ACETAMINOPHEN 325 MG TAB PO ×2 (14:47→20:57)
[2018-01-18] MEDS: DOCUSATE SODIUM 100 MG CAP PO (20:57)
[2018-01-18] MEDS: APIXABAN 5 MG TABLET PO (21:22)
[2018-01-19] MEDS: ZOLPIDEM 5 MG TAB PO (00:36)
[2018-01-19] MEDS: VALSARTAN 160 MG TAB PO ×3 (00:36→21:07)
[2018-01-19] MEDS: ATORVASTATIN 10 MG TAB PO ×2 (00:37→21:07)
[2018-01-19 06:53] LABS: ADD MAN DIFF? NO
[2018-01-19] MEDS: PANTOPRAZOLE (EC) 40 MG TAB PO (06:59)
[2018-01-19 07:01] LABS: BASOPHILS % 0.4 % (0.0-2.0); EOSINOPHILS # 0.1 10^3/ul (0.0-0.5); EOSINOPHILS % 1.4 % (0.0-7.0); HEMATOCRIT 38.1 % (42.0-52.0); LYMPHOCYTES # 1.1 10^3/ul (0.8-2.9); LYMPHOCYTES % 12.9 % (15.0-51.0); MEAN CORPUSCULAR HEMOGLOBIN 32.3 pg (29.0-33.0); MEAN CORPUSCULAR HGB CONC 34.1 g/dl (32.0-37.0); MEAN CORPUSCULAR VOLUME 94.5 fl (82.0-101.0); MEAN PLATELET VOLUME 11.3 fl (7.4-10.4); MONOCYTE # 0.5 10^3/ul (0.3-0.9); MONOCYTES % 5.9 % (0.0-11.0); NEUTROPHIL # 6.8 10^3/ul (1.6-7.5); NEUTROPHILS % 79.2 % (39.0-77.0); PLATELET COUNT 165 10^3/UL (140-415); RED BLOOD COUNT 4.03 10^6/ul (4.70-6.10); RED CELL DISTRIBUTION WIDTH 13.7 % (11.5-14.5)
[2018-01-19 07:01] LABS: WHITE BLOOD COUNT 8.5 10^3/ul (4.8-10.8)
[2018-01-19 07:24] LABS: ANION GAP 19 (8-16); BLOOD UREA NITROGEN 23 mg/dl (7-20); CALCIUM 9.8 mg/dl (8.4-10.2); CARBON DIOXIDE 21 mmol/L (21-31); CHLORIDE 109 mmol/L (97-110); GLUCOSE 103 mg/dl (70-220); POTASSIUM 4.4 mmol/L (3.5-5.1); SODIUM 145 mmol/L (135-144)
[2018-01-19] MEDS: METOPROLOL (XL) 50 MG TAB PO ×2 (09:11→22:00)
[2018-01-19] MEDS: TICAGRELOR 90 MG TABLET PO ×2 (09:13→21:11)
[2018-01-19] MEDS: NIACIN 500 MG TAB PO (10:05)
[2018-01-19] MEDS: APIXABAN 5 MG TABLET PO ×2 (10:05→21:07)
[2018-01-19] MEDS: ISOSORBIDE MONONITRATE(SR)30 MG TAB PO (10:06)
[2018-01-19] MEDS: MAGNESIUM SULFATE 2 GM/50 ML 50 ML IVPB (10:15)
[2018-01-19] MEDS: FUROSEMIDE 20 MG INJ IV (17:11)
[2018-01-20] MEDS: PANTOPRAZOLE (EC) 40 MG TAB PO (06:30)
[2018-01-20] MEDS: FUROSEMIDE 20 MG INJ IV ×2 (06:30→17:55)
[2018-01-20 08:31] LABS: ANION GAP 18 (8-16); BLOOD UREA NITROGEN 24 mg/dl (7-20); CARBON DIOXIDE 24 mmol/L (21-31); CHLORIDE 107 mmol/L (97-110); CREATININE 1.23 mg/dl (0.61-1.24); GLUCOSE 104 mg/dl (70-220); SODIUM 145 mmol/L (135-144)
[2018-01-20] MEDS: APIXABAN 5 MG TABLET PO ×2 (08:49→21:31)
[2018-01-20] MEDS: METOPROLOL (XL) 50 MG TAB PO ×2 (08:49→21:31)
[2018-01-20] MEDS: NIACIN 500 MG TAB PO (08:49)
[2018-01-20] MEDS: VALSARTAN 160 MG TAB PO ×2 (08:50→21:00)
[2018-01-20] MEDS: ISOSORBIDE MONONITRATE(SR)30 MG TAB PO (08:50)
[2018-01-20] MEDS: TICAGRELOR 90 MG TABLET PO ×2 (08:54→21:32)
[2018-01-20] MEDS: ACETAMINOPHEN 325 MG TAB PO ×2 (09:58→23:15)
[2018-01-20] MEDS: ATORVASTATIN 10 MG TAB PO ×2 (21:30→23:15)
[2018-01-21] MEDS: PANTOPRAZOLE (EC) 40 MG TAB PO (05:51)
[2018-01-21] MEDS: FUROSEMIDE 20 MG INJ IV (05:52)
[2018-01-21] MEDS: VALSARTAN 160 MG TAB PO ×2 (09:00→21:29)
[2018-01-21] MEDS: ISOSORBIDE MONONITRATE(SR)30 MG TAB PO (09:00)
[2018-01-21] MEDS: METOPROLOL (XL) 50 MG TAB PO ×2 (09:00→21:31)
[2018-01-21] MEDS: NIACIN 500 MG TAB PO (09:37)
[2018-01-21] MEDS: APIXABAN 5 MG TABLET PO ×2 (09:37→21:31)
[2018-01-21] MEDS: TICAGRELOR 90 MG TABLET PO ×2 (10:04→21:29)
[2018-01-21] MEDS: ACETAMINOPHEN 500 MG TAB PO (16:46)
[2018-01-21] MEDS: DOCUSATE SODIUM 100 MG CAP PO (18:20)
[2018-01-21] MEDS: ACETAMINOPHEN 325 MG TAB PO (23:29)
[2018-01-22] MEDS: PANTOPRAZOLE (EC) 40 MG TAB PO (05:02)
[2018-01-22] MEDS: APIXABAN 5 MG TABLET PO ×2 (09:03→15:29)
[2018-01-22] MEDS: VALSARTAN 160 MG TAB PO (09:05)
[2018-01-22] MEDS: NIACIN 500 MG TAB PO (09:05)
[2018-01-22] MEDS: METOPROLOL (XL) 50 MG TAB PO (09:06)
[2018-01-22] MEDS: TICAGRELOR 90 MG TABLET PO (11:25)
[2018-01-22] MEDS: ISOSORBIDE MONONITRATE(SR)30 MG TAB PO (11:26)
== END 2018-01-22 15:33 | disposition home or self-care (01) | DRG 308 ==
LOC: MS4 19:49 → E/R 15:15
DX: I48.0 Paroxysmal atrial fibrillation (principal); I50.23 Acute on chronic systolic (congestive) heart failure; I13.0 Hypertensive heart and chronic kidney disease with heart failure and stage 1 through stage 4 chronic kidney disease, or unspecified chronic kidney disease; E87.0 Hyperosmolality and hypernatremia; N18.9 Chronic kidney disease, unspecified; I25.10 Atherosclerotic heart disease of native coronary artery without angina pectoris; Z95.1 Presence of aortocoronary bypass graft; Z95.5 Presence of coronary angioplasty implant and graft; E78.5 Hyperlipidemia, unspecified; Z87.442 Personal history of urinary calculi; F41.9 Anxiety disorder, unspecified; E66.9 Obesity, unspecified; Z68.36 Body mass index [BMI] 36.0-36.9, adult; G47.00 Insomnia, unspecified; I48.92 Unspecified atrial flutter; D63.1 Anemia in chronic kidney disease; E78.00 Pure hypercholesterolemia, unspecified
CPT/HCPCS: 36415; 71045; 80048; 80053; 80061; 82550; 82553; 83880; 84436; 84479; 84484; 85025; 85610; 85730; 93005; 94664; 96374; 96375; 99291-25

== ENCOUNTER 2018-02-05 22:09 | Inpatient (IN) | payer MEDICARE, OTHER ==
[2018-02-05 23:16] LABS: ADD MAN DIFF? NO
[2018-02-05 23:19] LABS: WHITE BLOOD COUNT 8.2 10^3/ul (4.8-10.8)
[2018-02-05 23:19] LABS: BASOPHILS % 0.5 % (0.0-2.0); EOSINOPHILS # 0.1 10^3/ul (0.0-0.5); EOSINOPHILS % 1.3 % (0.0-7.0); HEMATOCRIT 38.7 % (42.0-52.0); HEMOGLOBIN 12.7 g/dl (14.0-18.0); LYMPHOCYTES # 1.3 10^3/ul (0.8-2.9); LYMPHOCYTES % 15.7 % (15.0-51.0); MEAN CORPUSCULAR HEMOGLOBIN 31.3 pg (29.0-33.0); MEAN CORPUSCULAR HGB CONC 32.8 g/dl (32.0-37.0); MEAN CORPUSCULAR VOLUME 95.3 fl (82.0-101.0); MEAN PLATELET VOLUME 10.7 fl (7.4-10.4); MONOCYTE # 0.3 10^3/ul (0.3-0.9); MONOCYTES % 3.5 % (0.0-11.0); NEUTROPHIL # 6.5 10^3/ul (1.6-7.5); NEUTROPHILS % 78.6 % (39.0-77.0); PLATELET COUNT 195 10^3/UL (140-415); RED BLOOD COUNT 4.06 10^6/ul (4.70-6.10); RED CELL DISTRIBUTION WIDTH 13.3 % (11.5-14.5)
[2018-02-05 23:38] LABS: INR 1.09; PROTIME 14.2 Sec (11.9-14.9); PT RATIO 1.1
[2018-02-05 23:39] LABS: PARTIAL THROMBOPLASTIN TIME 29.2 Sec (25.0-35.0)
[2018-02-05 23:40] LABS: ALANINE AMINOTRANSFERASE 23 IU/L (13-69); ALBUMIN 4.1 g/dl (3.3-4.9); ALBUMIN/GLOBULIN RATIO 1.46; ALKALINE PHOSPHATASE 104 IU/L (42-121); ANION GAP 15 (8-16); ASPARTATE AMINO TRANSFERASE 15 IU/L (15-46); BILIRUBIN,INDIRECT 0.1 mg/dl (0-1.1); BILIRUBIN,TOTAL 0.1 mg/dl (0.2-1.3); BLOOD UREA NITROGEN 27 mg/dl (7-20); CALCIUM 9.6 mg/dl (8.4-10.2); CARBON DIOXIDE 24 mmol/L (21-31); CHLORIDE 111 mmol/L (97-110); CREATININE 1.25 mg/dl (0.61-1.24); GLUCOSE 105 mg/dl (70-220); POTASSIUM 5.1 mmol/L (3.5-5.1); SODIUM 145 mmol/L (135-144); TOTAL PROTEIN 6.9 g/dl (6.1-8.1)
[2018-02-05 23:51] LABS: B-TYPE NATRIURETIC PEPTIDE 1780 PG/ML (0-125); TROPONIN-I 0.018 ng/ml (0.00-0.12)
[2018-02-06] MEDS: FUROSEMIDE 40 MG INJ IV ×3 (01:32→18:08)
[2018-02-06] MEDS ORDERED: RANITIDINE 150 MG TAB PO (05:00)
[2018-02-06] MEDS ORDERED: ONDANSETRON 4 MG INJ IV (05:00)
[2018-02-06] MEDS: PANTOPRAZOLE 40 MG INJ IV (06:12)
[2018-02-06 07:04] LABS: ADD MAN DIFF? NO
[2018-02-06 07:07] LABS: BASOPHILS % 0.3 % (0.0-2.0); EOSINOPHILS # 0.1 10^3/ul (0.0-0.5); EOSINOPHILS % 1.8 % (0.0-7.0); HEMATOCRIT 38.4 % (42.0-52.0); HEMOGLOBIN 12.7 g/dl (14.0-18.0); LYMPHOCYTES # 1.7 10^3/ul (0.8-2.9); LYMPHOCYTES % 23.2 % (15.0-51.0); MEAN CORPUSCULAR HEMOGLOBIN 31.8 pg (29.0-33.0); MEAN CORPUSCULAR HGB CONC 33.1 g/dl (32.0-37.0); MEAN PLATELET VOLUME 10.6 fl (7.4-10.4); MONOCYTE # 0.4 10^3/ul (0.3-0.9); MONOCYTES % 5.9 % (0.0-11.0); NEUTROPHIL # 4.9 10^3/ul (1.6-7.5); NEUTROPHILS % 68.4 % (39.0-77.0); PLATELET COUNT 194 10^3/UL (140-415); RED CELL DISTRIBUTION WIDTH 13.2 % (11.5-14.5)
[2018-02-06 07:07] LABS: WHITE BLOOD COUNT 7.1 10^3/ul (4.8-10.8)
[2018-02-06 07:29] LABS: ANION GAP 19 (8-16); BLOOD UREA NITROGEN 27 mg/dl (7-20); CALCIUM 9.7 mg/dl (8.4-10.2); CARBON DIOXIDE 26 mmol/L (21-31); CHLORIDE 107 mmol/L (97-110); CREATININE 1.29 mg/dl (0.61-1.24); GLUCOSE 94 mg/dl (70-220); POTASSIUM 4.6 mmol/L (3.5-5.1); SODIUM 147 mmol/L (135-144)
[2018-02-06 07:30] LABS: CREATINE KINASE 32 IU/L (23-200)
[2018-02-06 07:42] LABS: CK INDEX 4.8; TROPONIN-I 0.034 ng/ml (0.00-0.12)
[2018-02-06 07:43] LABS: CK-MB 1.54 ng/ml (0.0-2.4)
[2018-02-06] MEDS: NIACIN 500 MG TAB PO ×2 (09:00→21:12)
[2018-02-06] MEDS ORDERED: FUROSEMIDE 40 MG TAB PO (09:00)
[2018-02-06] MEDS: APIXABAN 5 MG TABLET PO ×2 (09:21→21:13)
[2018-02-06] MEDS: METOPROLOL 50 MG TAB PO ×2 (09:22→21:00)
[2018-02-06] MEDS: TICAGRELOR 90 MG TABLET PO ×2 (09:25→21:00)
[2018-02-06] MEDS: ACETAMINOPHEN 325 MG TAB PO ×2 (10:07→22:15)
[2018-02-06] MEDS: VALSARTAN 160 MG TAB PO (11:42)
[2018-02-06 12:52] LABS: CREATINE KINASE 37 IU/L (23-200)
[2018-02-06 13:03] LABS: CK INDEX 3.4; TROPONIN-I 0.025 ng/ml (0.00-0.12)
[2018-02-06 13:08] LABS: CK-MB 1.27 ng/ml (0.0-2.4)
[2018-02-06] MEDS ORDERED: NITROGLYCERIN (SL) 0.4 MG TAB SL (15:30)
[2018-02-06] MEDS: AMIODARONE 200 MG TAB PO ×2 (15:37→21:00)
[2018-02-06 18:55] LABS: CREATINE KINASE 33 IU/L (23-200)
[2018-02-06 19:09] LABS: CK INDEX 3.5
[2018-02-06 19:16] LABS: CK-MB 1.15 ng/ml (0.0-2.4)
[2018-02-06] MEDS: LEVALBUTEROL (NEB) 0.31 MG/3 ML AMP HHN (21:07)
[2018-02-06] MEDS: ATORVASTATIN 10 MG TAB PO (21:12)
[2018-02-06] MEDS ORDERED: LEVALBUTEROL (HFA) 15 GM INHALER INH (21:30)
[2018-02-06] MEDS ORDERED: DIPHENHYDRAMINE 50 MG INJ IV (23:00)
[2018-02-07] MEDS: PANTOPRAZOLE 40 MG INJ IV ×2 (06:00→06:18)
[2018-02-07] MEDS: FUROSEMIDE 40 MG INJ IV ×2 (06:18→18:24)
[2018-02-07 06:44] LABS: CREATINE KINASE 35 IU/L (23-200)
[2018-02-07 06:57] LABS: CK INDEX 3.8
[2018-02-07 06:58] LABS: CK-MB 1.34 ng/ml (0.0-2.4)
[2018-02-07] MEDS: VALSARTAN 160 MG TAB PO (09:25)
[2018-02-07] MEDS: AMIODARONE 200 MG TAB PO ×2 (09:26→21:15)
[2018-02-07] MEDS: APIXABAN 5 MG TABLET PO ×2 (09:26→21:15)
[2018-02-07] MEDS: METOPROLOL 50 MG TAB PO ×2 (09:26→21:15)
[2018-02-07] MEDS: TICAGRELOR 90 MG TABLET PO ×2 (09:32→21:16)
[2018-02-07] MEDS: NIACIN 500 MG TAB PO (21:14)
[2018-02-07] MEDS: ATORVASTATIN 10 MG TAB PO (21:14)
[2018-02-08] MEDS: FUROSEMIDE 40 MG INJ IV (06:27)
[2018-02-08] MEDS: PANTOPRAZOLE 40 MG INJ IV (06:27)
[2018-02-08] MEDS ORDERED: FUROSEMIDE 40 MG INJ IV (09:00)
[2018-02-08] MEDS: VALSARTAN 160 MG TAB PO (09:03)
[2018-02-08] MEDS: METOPROLOL 50 MG TAB PO ×2 (09:03→21:00)
[2018-02-08] MEDS: AMIODARONE 200 MG TAB PO ×2 (09:03→21:23)
[2018-02-08] MEDS: APIXABAN 5 MG TABLET PO ×2 (09:03→21:21)
[2018-02-08] MEDS: TICAGRELOR 90 MG TABLET PO ×2 (09:06→21:28)
[2018-02-08 09:15] LABS: ADD MAN DIFF? NO
[2018-02-08 09:22] LABS: BASOPHILS % 0.3 % (0.0-2.0); EOSINOPHILS # 0.1 10^3/ul (0.0-0.5); EOSINOPHILS % 1.3 % (0.0-7.0); HEMATOCRIT 40.2 % (42.0-52.0); HEMOGLOBIN 13.7 g/dl (14.0-18.0); LYMPHOCYTES # 1.6 10^3/ul (0.8-2.9); LYMPHOCYTES % 23.4 % (15.0-51.0); MEAN CORPUSCULAR HEMOGLOBIN 31.9 pg (29.0-33.0); MEAN CORPUSCULAR HGB CONC 34.1 g/dl (32.0-37.0); MEAN CORPUSCULAR VOLUME 93.7 fl (82.0-101.0); MEAN PLATELET VOLUME 10.7 fl (7.4-10.4); MONOCYTE # 0.5 10^3/ul (0.3-0.9); MONOCYTES % 7.3 % (0.0-11.0); NEUTROPHIL # 4.7 10^3/ul (1.6-7.5); NEUTROPHILS % 67.6 % (39.0-77.0); PLATELET COUNT 212 10^3/UL (140-415); RED BLOOD COUNT 4.29 10^6/ul (4.70-6.10); RED CELL DISTRIBUTION WIDTH 13.4 % (11.5-14.5)
[2018-02-08 09:22] LABS: WHITE BLOOD COUNT 6.9 10^3/ul (4.8-10.8)
[2018-02-08 09:37] LABS: PHOSPHORUS 4.3 mg/dl (2.5-4.9)
[2018-02-08 09:41] LABS: ANION GAP 18 (8-16); BLOOD UREA NITROGEN 48 mg/dl (7-20); CALCIUM 9.5 mg/dl (8.4-10.2); CARBON DIOXIDE 23 mmol/L (21-31); CHLORIDE 105 mmol/L (97-110); CREATININE 1.76 mg/dl (0.61-1.24); GLUCOSE 108 mg/dl (70-220); POTASSIUM 4.2 mmol/L (3.5-5.1); SODIUM 142 mmol/L (135-144)
[2018-02-08] MEDS: GUAIFENESIN 20 MG/ML 5ML CUP PO (14:28)
[2018-02-08] MEDS ORDERED: GUAIFENESIN/CODEINE 5ML CUP PO (16:00)
[2018-02-08] MEDS: GUAIFENESIN/DM 5ML CUP PO (18:32)
[2018-02-08] MEDS: ATORVASTATIN 10 MG TAB PO (21:21)
[2018-02-08] MEDS: TAMSULOSIN (SR) 0.4 MG CAP PO (21:21)
[2018-02-09] MEDS: PANTOPRAZOLE 40 MG INJ IV (05:14)
[2018-02-09 06:07] LABS: ADD MAN DIFF? NO
[2018-02-09 06:22] LABS: WHITE BLOOD COUNT 6.7 10^3/ul (4.8-10.8)
[2018-02-09 06:22] LABS: BASOPHILS % 0.3 % (0.0-2.0); EOSINOPHILS # 0.1 10^3/ul (0.0-0.5); EOSINOPHILS % 1.5 % (0.0-7.0); HEMATOCRIT 37.1 % (42.0-52.0); HEMOGLOBIN 12.4 g/dl (14.0-18.0); LYMPHOCYTES # 1.2 10^3/ul (0.8-2.9); MEAN CORPUSCULAR HEMOGLOBIN 31.7 pg (29.0-33.0); MEAN CORPUSCULAR HGB CONC 33.4 g/dl (32.0-37.0); MEAN CORPUSCULAR VOLUME 94.9 fl (82.0-101.0); MONOCYTE # 0.6 10^3/ul (0.3-0.9); MONOCYTES % 8.3 % (0.0-11.0); NEUTROPHIL # 4.8 10^3/ul (1.6-7.5); NEUTROPHILS % 71.6 % (39.0-77.0); PLATELET COUNT 165 10^3/UL (140-415); RED BLOOD COUNT 3.91 10^6/ul (4.70-6.10); RED CELL DISTRIBUTION WIDTH 13.2 % (11.5-14.5)
[2018-02-09 06:40] LABS: ANION GAP 16 (8-16); BLOOD UREA NITROGEN 58 mg/dl (7-20); CALCIUM 8.8 mg/dl (8.4-10.2); CARBON DIOXIDE 23 mmol/L (21-31); CHLORIDE 109 mmol/L (97-110); CREATININE 2.16 mg/dl (0.61-1.24); GLUCOSE 105 mg/dl (70-220); POTASSIUM 4.5 mmol/L (3.5-5.1); SODIUM 143 mmol/L (135-144)
[2018-02-09] MEDS: APIXABAN 5 MG TABLET PO ×2 (08:52→21:08)
[2018-02-09] MEDS: VALSARTAN 80 MG TAB PO (09:00)
[2018-02-09] MEDS: FUROSEMIDE 40 MG INJ IV (09:00)
[2018-02-09] MEDS: METOPROLOL 50 MG TAB PO ×2 (09:00→23:33)
[2018-02-09] MEDS: AMIODARONE 200 MG TAB PO (09:07)
[2018-02-09] MEDS: TICAGRELOR 90 MG TABLET PO ×2 (09:21→21:16)
[2018-02-09] MEDS: GUAIFENESIN/DM 5ML CUP PO ×2 (10:34→23:32)
[2018-02-09] MEDS: ACETAMINOPHEN 325 MG TAB PO (10:34)
[2018-02-09] MEDS: TETRAHYDROZOLINE 0.05% 15 ML OPH RIGHT EYE (18:42)
[2018-02-09] MEDS: ATORVASTATIN 10 MG TAB PO (21:08)
[2018-02-09] MEDS: TAMSULOSIN (SR) 0.4 MG CAP PO (21:08)
[2018-02-10] MEDS: ACETAMINOPHEN 325 MG TAB PO (04:20)
[2018-02-10] MEDS: PANTOPRAZOLE (EC) 40 MG TAB PO (05:55)
[2018-02-10 06:49] LABS: ANION GAP 17 (8-16); BLOOD UREA NITROGEN 48 mg/dl (7-20); CALCIUM 9.3 mg/dl (8.4-10.2); CARBON DIOXIDE 24 mmol/L (21-31); CHLORIDE 109 mmol/L (97-110); CREATININE 1.66 mg/dl (0.61-1.24); GLUCOSE 103 mg/dl (70-220); SODIUM 145 mmol/L (135-144)
[2018-02-10] MEDS: TETRAHYDROZOLINE 0.05% 15 ML OPH RIGHT EYE (07:53)
[2018-02-10] MEDS: METOPROLOL 50 MG TAB PO ×2 (09:00→20:30)
[2018-02-10] MEDS: TICAGRELOR 90 MG TABLET PO ×2 (09:00→20:31)
[2018-02-10] MEDS: VALSARTAN 80 MG TAB PO (09:00)
[2018-02-10] MEDS: AMIODARONE 200 MG TAB PO (09:01)
[2018-02-10] MEDS: APIXABAN 5 MG TABLET PO ×2 (09:01→20:29)
[2018-02-10] MEDS: FUROSEMIDE 40 MG INJ IV (09:02)
[2018-02-10] MEDS: NAPHAZOLINE 0.012% 15 ML OPH RIGHT EYE ×2 (10:34→20:29)
[2018-02-10] MEDS: DIGOXIN 0.125 MG TAB PO (13:30)
[2018-02-10] MEDS: GUAIFENESIN/DM 5ML CUP PO (13:30)
[2018-02-10] MEDS: TAMSULOSIN (SR) 0.4 MG CAP PO (20:29)
[2018-02-10] MEDS: ATORVASTATIN 10 MG TAB PO (20:29)
[2018-02-11] MEDS: ACETAMINOPHEN 325 MG TAB PO ×2 (00:11→18:52)
[2018-02-11] MEDS: GUAIFENESIN/DM 5ML CUP PO (00:11)
[2018-02-11] MEDS: PANTOPRAZOLE (EC) 40 MG TAB PO (05:22)
[2018-02-11] MEDS: TICAGRELOR 90 MG TABLET PO ×2 (08:34→21:03)
[2018-02-11] MEDS: AMIODARONE 200 MG TAB PO (08:36)
[2018-02-11] MEDS: METOPROLOL 50 MG TAB PO (08:36)
[2018-02-11] MEDS: VALSARTAN 80 MG TAB PO (08:37)
[2018-02-11] MEDS: FUROSEMIDE 40 MG INJ IV (08:37)
[2018-02-11] MEDS: APIXABAN 5 MG TABLET PO ×2 (08:37→21:02)
[2018-02-11] MEDS: NAPHAZOLINE 0.012% 15 ML OPH RIGHT EYE ×2 (08:43→21:00)
[2018-02-11 14:14] LABS: ANION GAP 14 (8-16); BLOOD UREA NITROGEN 47 mg/dl (7-20); CALCIUM 9.9 mg/dl (8.4-10.2); CARBON DIOXIDE 27 mmol/L (21-31); CHLORIDE 108 mmol/L (97-110); CREATININE 1.82 mg/dl (0.61-1.24); GLUCOSE 117 mg/dl (70-220); POTASSIUM 4.6 mmol/L (3.5-5.1); SODIUM 144 mmol/L (135-144)
[2018-02-11] MEDS: DIGOXIN 0.125 MG TAB PO (14:34)
[2018-02-11] MEDS: TAMSULOSIN (SR) 0.4 MG CAP PO (21:02)
[2018-02-12] MEDS: ATORVASTATIN 10 MG TAB PO ×2 (00:10→23:27)
[2018-02-12] MEDS: METOPROLOL 50 MG TAB PO ×3 (00:12→23:27)
[2018-02-12] MEDS: GUAIFENESIN/DM 5ML CUP PO (00:13)
[2018-02-12] MEDS: PANTOPRAZOLE (EC) 40 MG TAB PO (06:16)
[2018-02-12 06:28] LABS: ANION GAP 16 (8-16); BLOOD UREA NITROGEN 52 mg/dl (7-20); CALCIUM 9.4 mg/dl (8.4-10.2); CARBON DIOXIDE 23 mmol/L (21-31); CHLORIDE 106 mmol/L (97-110); CREATININE 1.97 mg/dl (0.61-1.24); GLUCOSE 99 mg/dl (70-220); POTASSIUM 4.2 mmol/L (3.5-5.1); SODIUM 141 mmol/L (135-144)
[2018-02-12 06:52] LABS: PHOSPHORUS 4.4 mg/dl (2.5-4.9)
[2018-02-12] MEDS: VALSARTAN 80 MG TAB PO (09:00)
[2018-02-12] MEDS: NAPHAZOLINE 0.012% 15 ML OPH RIGHT EYE ×2 (09:54→23:28)
[2018-02-12] MEDS: APIXABAN 5 MG TABLET PO ×2 (09:55→20:44)
[2018-02-12] MEDS: FUROSEMIDE 40 MG TAB PO (09:55)
[2018-02-12] MEDS: AMIODARONE 200 MG TAB PO (09:56)
[2018-02-12] MEDS: TICAGRELOR 90 MG TABLET PO ×2 (09:59→21:00)
[2018-02-12] MEDS: DIGOXIN 0.125 MG TAB PO (13:00)
[2018-02-12] MEDS: ACETAMINOPHEN 325 MG TAB PO ×2 (15:53→23:28)
[2018-02-12] MEDS: DIPHENHYDRAMINE 50 MG CAP PO (16:30)
[2018-02-12] MEDS: DIAZEPAM 5 MG TAB PO (16:30)
[2018-02-12] MEDS: TAMSULOSIN (SR) 0.4 MG CAP PO (20:44)
[2018-02-13] MEDS: PANTOPRAZOLE (EC) 40 MG TAB PO (05:39)
[2018-02-13 07:29] LABS: ADD MAN DIFF? NO
[2018-02-13 07:33] LABS: WHITE BLOOD COUNT 5.1 10^3/ul (4.8-10.8)
[2018-02-13 07:33] LABS: BASOPHILS % 0.6 % (0.0-2.0); EOSINOPHILS # 0.1 10^3/ul (0.0-0.5); HEMATOCRIT 37.9 % (42.0-52.0); HEMOGLOBIN 12.8 g/dl (14.0-18.0); LYMPHOCYTES # 1.2 10^3/ul (0.8-2.9); LYMPHOCYTES % 23.6 % (15.0-51.0); MEAN CORPUSCULAR HEMOGLOBIN 31.7 pg (29.0-33.0); MEAN CORPUSCULAR HGB CONC 33.8 g/dl (32.0-37.0); MEAN CORPUSCULAR VOLUME 93.8 fl (82.0-101.0); MEAN PLATELET VOLUME 11.2 fl (7.4-10.4); MONOCYTE # 0.4 10^3/ul (0.3-0.9); MONOCYTES % 7.5 % (0.0-11.0); NEUTROPHIL # 3.4 10^3/ul (1.6-7.5); NEUTROPHILS % 66.1 % (39.0-77.0); PLATELET COUNT 180 10^3/UL (140-415); RED BLOOD COUNT 4.04 10^6/ul (4.70-6.10); RED CELL DISTRIBUTION WIDTH 12.9 % (11.5-14.5)
[2018-02-13] MEDS: METOPROLOL 50 MG TAB PO ×2 (09:00→21:52)
[2018-02-13] MEDS: AMIODARONE 200 MG TAB PO (09:00)
[2018-02-13] MEDS: NAPHAZOLINE 0.012% 15 ML OPH RIGHT EYE ×2 (09:00→21:50)
[2018-02-13] MEDS: VALSARTAN 80 MG TAB PO (09:00)
[2018-02-13] MEDS: APIXABAN 5 MG TABLET PO ×2 (09:51→21:50)
[2018-02-13] MEDS: TICAGRELOR 90 MG TABLET PO ×2 (10:02→21:51)
[2018-02-13] MEDS ORDERED: ONDANSETRON 4 MG INJ IV (11:00)
[2018-02-13] MEDS ORDERED: HYDROmorphONE (0.2 MG/ML) 10ML SYG IV (11:00)
[2018-02-13] MEDS ORDERED: LIDOCAINE 1% (MDV) 20 ML INJ (11:22)
[2018-02-13] MEDS ORDERED: MIDAZOLAM 1 MG/ML 2 ML INJ (11:22)
[2018-02-13] MEDS ORDERED: ETOMIDATE 20 MG INJ (11:22)
[2018-02-13] MEDS ORDERED: FENTAnyl 50 MCG/ML VIAL (11:22)
[2018-02-13] MEDS ORDERED: PROPOFOL 20 ML (11:23)
[2018-02-13] MEDS ORDERED: AMIODARONE 150 MG INJ (11:43)
[2018-02-13] MEDS: AMIODARONE 150MG/D5W BOLUS 100 ML IV (11:45)
[2018-02-13] MEDS: ACETAMINOPHEN 325 MG TAB PO (15:39)
[2018-02-13] MEDS: ATORVASTATIN 10 MG TAB PO (21:50)
[2018-02-13] MEDS: TAMSULOSIN (SR) 0.4 MG CAP PO (21:50)
[2018-02-14] MEDS: PANTOPRAZOLE (EC) 40 MG TAB PO ×2 (06:00→07:07)
[2018-02-14] MEDS: VALSARTAN 80 MG TAB PO (08:44)
[2018-02-14] MEDS: AMIODARONE 200 MG TAB PO (08:44)
[2018-02-14] MEDS: METOPROLOL 50 MG TAB PO (08:44)
[2018-02-14] MEDS: APIXABAN 5 MG TABLET PO ×2 (08:45→20:33)
[2018-02-14] MEDS: TICAGRELOR 90 MG TABLET PO ×2 (08:49→20:35)
[2018-02-14] MEDS: ACETAMINOPHEN 325 MG TAB PO ×2 (14:32→23:09)
[2018-02-14 15:42] LABS: ANION GAP 20 (8-16); BLOOD UREA NITROGEN 49 mg/dl (7-20); CALCIUM 9.5 mg/dl (8.4-10.2); CARBON DIOXIDE 22 mmol/L (21-31); CHLORIDE 106 mmol/L (97-110); CREATININE 1.92 mg/dl (0.61-1.24); GLUCOSE 101 mg/dl (70-220); POTASSIUM 5.1 mmol/L (3.5-5.1); SODIUM 143 mmol/L (135-144)
[2018-02-14] MEDS: SOD CHLORIDE 0.9% 250 ML IV (17:12)
[2018-02-14] MEDS: TAMSULOSIN (SR) 0.4 MG CAP PO (20:33)
[2018-02-14] MEDS: METOPROLOL (XL) 25 MG TAB PO (23:09)
[2018-02-14] MEDS: ATORVASTATIN 10 MG TAB PO (23:09)
[2018-02-14] MEDS: GUAIFENESIN/DM 5ML CUP PO (23:09)
[2018-02-15] MEDS: PANTOPRAZOLE (EC) 40 MG TAB PO (06:05)
[2018-02-15 07:24] LABS: ANION GAP 16 (8-16); BLOOD UREA NITROGEN 47 mg/dl (7-20); CALCIUM 8.7 mg/dl (8.4-10.2); CARBON DIOXIDE 20 mmol/L (21-31); CHLORIDE 110 mmol/L (97-110); CREATININE 1.61 mg/dl (0.61-1.24); GLUCOSE 102 mg/dl (70-220); MAGNESIUM 2.1 mg/dl (1.7-2.5); POTASSIUM 4.3 mmol/L (3.5-5.1); SODIUM 142 mmol/L (135-144)
[2018-02-15] MEDS: AMIODARONE 200 MG TAB PO (08:41)
[2018-02-15] MEDS: VALSARTAN 80 MG TAB PO (08:43)
[2018-02-15] MEDS: APIXABAN 5 MG TABLET PO (08:44)
[2018-02-15] MEDS: TICAGRELOR 90 MG TABLET PO (08:44)
[2018-02-15] MEDS: METOPROLOL (XL) 25 MG TAB PO (08:48)
[2018-02-15] MEDS: ACETAMINOPHEN 325 MG TAB PO (11:44)
[2018-02-15] MEDS: AMIODARONE 150MG/D5W BOLUS 100 ML IV (14:43)
== END 2018-02-15 18:00 | disposition home or self-care (01) | DRG 292 ==
LOC: MS4 02-06 01:53 → E/R 22:09
PROC: B245ZZ4 Ultrasonography of Left Heart, Transesophageal (ICD-10-PCS; principal; 2018-02-13 10:00)
DX: I50.23 Acute on chronic systolic (congestive) heart failure (principal); I48.92 Unspecified atrial flutter; I13.0 Hypertensive heart and chronic kidney disease with heart failure and stage 1 through stage 4 chronic kidney disease, or unspecified chronic kidney disease; Z79.01 Long term (current) use of anticoagulants; N18.9 Chronic kidney disease, unspecified; I25.5 Ischemic cardiomyopathy; E78.5 Hyperlipidemia, unspecified; R53.83 Other fatigue; D64.9 Anemia, unspecified; I25.10 Atherosclerotic heart disease of native coronary artery without angina pectoris; Z95.1 Presence of aortocoronary bypass graft
CPT/HCPCS: 36415; 71045; 80048; 80053; 82550; 82553; 83735; 83880; 84100; 84443; 84484; 85025; 85610; 85730; 92960; 93005; 93312; 93320; 94760; 96374; 99217; 99285-25; G0378

== ENCOUNTER 2019-07-05 16:46 | Emergency (ER) | payer MEDICARE, OTHER ==
[2019-07-05] MEDS: ONDANSETRON 4 MG INJ IV (19:05)
[2019-07-05] MEDS: SOD CHLORIDE 0.9% 1,000 ML IV (19:05)
[2019-07-05] MEDS: LIDOCAINE/MYLANTA 40 ML BTL PO (19:05)
[2019-07-05] MEDS: ACETAMINOPHEN 325 MG TAB PO (19:46)
== END 2019-07-05 21:26 | disposition home or self-care (01) ==
LOC: E/R 16:46
DX: R07.9 Chest pain, unspecified (principal); I25.2 Old myocardial infarction; I11.0 Hypertensive heart disease with heart failure; I50.9 Heart failure, unspecified; R11.0 Nausea; R19.7 Diarrhea, unspecified; Z95.1 Presence of aortocoronary bypass graft; Z79.01 Long term (current) use of anticoagulants
CPT/HCPCS: 36415; 71045; 80053; 84484; 85025; 93005; 96374; 99285-25